=== PATIENT | male | born 1970 | race Caucasian/White ===

== ENCOUNTER 2021-05-19 15:10 | Emergency (ER) | payer OTHER ==
[2021-05-19 15:21] VITALS: TEMP 97.8; BMI 23.0
[2021-05-19] MEDS ORDERED: SODIUM CHLORIDE 0.9% 500 ML INFUS.BAG IV ONE (16:22)
[2021-05-19 16:25] LABS: HEMATOCRIT 41.9 % (35.4-49); HEMOGLOBIN 14.6 GM/dl (11.7-16.9); MCH 32.2 pg (25.7-33.7); MCHC 34.8 g/dl (32.0-35.9); MEAN CELL VOLUME 92.5 fl (80-96); MEAN PLT VOLUME 9.4 fl (7.5-11.1); PLATELET COUNT 251 10^3/uL (134-434); RBC 4.53 M/mm3 (4.00-5.60); RDW 12.4 % (11.9-15.9); WHITE BLOOD COUNT 14.6 K/mm3 (4.0-10.8)
[2021-05-19 16:41] LABS: ALBUMIN 4.5 g/dl (3.4-5.0); ALK PHOS 56 U/L (45-117); ANION GAP 9 MMOL/L (8-16); BILIRUBIN,TOTAL 0.8 mg/dl (0.2-1); CALCIUM 8.6 mg/dl (8.5-10); CHLORIDE 100 mmol/L (98-107); CO2 24 mmol/L (21-32); CREATININE 0.9 mg/dl (0.55-1.3); SGOT/AST 44 U/L (15-37); SGPT/ALT 42 U/L (13-61); SODIUM 133 mmol/L (136-145); TOT PROT 6.7 g/dl (6.4-8.2)
[2021-05-19 16:46] LABS: GLUCOSE,RANDOM 335 mg/dl (74-106)
[2021-05-19 17:37] LABS: PLATELET ESTIMATE ADEQUATE
[2021-05-19 17:57] VITALS: BP 121/73; PULSE 70
== END 2021-05-19 18:00 | disposition home or self-care (01) ==
LOC: FER 15:10
DX: R42 Dizziness and giddiness (principal)
CPT/HCPCS: 36415; 80053; 82550; 82553; 82962; 84484; 85025; 93005; 99284-25